=== PATIENT | male | born 1995 | race Caucasian/White ===

== ENCOUNTER 2019-03-20 11:24 | Inpatient (IN) | payer OTHER ==
[2019-03-20 14:16] VITALS: BMI 28.1
--- NOTE | 2019-03-20 15:36 | HP ---
COWS - Scale Resting Pulse: 1= ME 81-100 Sweatin= Chills/Flushing Restless Observation: 1= Difficult to Sit Still Pupil Size: 1= Pupils >than Normal Bone or Joint Aches: 1= Mild Discomfort Runny Nose/ Eye Tearin= Nasal Congestion GI Upset > 30mins: 1= Stomach Cramp Tremor Observation: 1= Tremor [place], Not Seen Yawning Observation: 1= 1-2x During Session Anxiety or Irritability: 1=Feels Anxious/Irritable Goose Flesh Skin: 3=Piloerection COWS Score: 13 CIWA Score Nausea/Vomitin-Mild Nausea/No Vomiting Muscle Tremors: 2 Anxiety: 6 Agitation: 1-Slight > Activity Paroxysmal Sweats: 1-Minimal Palms Moist Orientation: 0-Oriented Tacttile Disturbances: 0-None Auditory Disturbances: 0-None Visual Disturbances: 0-None Headache: 1-Very Mild CIWA-Ar Total Score: 12 - Admission Criteria OASAS Guidelines: Admission for Medically Managed Detox: Requires at least one of the followin. CIWA greater than 12 2. Seizures within the past 24 hours 3. Delirium tremens within the past 24 hours 4. Hallucinations within the past 24 hours 5. Acute intervention needed for co occurring medical disorder 6. Acute intervention needed for co occurring psychiatric disorder 7. Severe withdrawal that cannot be handled at a lower level of care (continued vomiting, continued diarrhea, abnormal vital signs) requiring intravenous medication and/or fluids 8. Patient presents the following: CIWA greater than 12 Admission Criteria Met: Admission criteria met Admission ROS [facility] Chief Complaint: here for heroin, xanax and alcohol detox. 23 yo anxiety and uses heroin and xanax to treat this. Says he would like to be abstinent. Says he likes suboxone as treatment for OUD but runs out and then uses heroin. Lives in [place] with his mother. heroin- 3 bundles/day, IV. no h/o OD alcohol- 1pint/day vodka, n oh/i seizures, DT's xanax- 8 mg /day, no h/o seizures. DUR- suboxone 02/06 7 strips, b/c insurance did not cover the 90 strips Utox-THC, met, fen, mop, oxy, MTD, JOANA- no Allergies/Adverse Reactions: Allergies Allergy/AdvReac Type Severity Reaction Status Date / Time No Known Allergies Allergy Verified 03/20/19 14:10 - Ebola screening Have you traveled outside of the country in the last 21 days: No (N) Have you had contact with anyone from an Ebola affected area: No Do you have a fever: No Patient History - Patient Medical History Other Medical History: anxiety - Patient Surgical History Past Surgical History: No - PPD History Documented Results: Negative w/o proof - Smoking Cessation Smoking history: Current every day smoker Have you smoked in the past 12 months: Yes Aproximately how many cigarettes per day: 1 Hx Chewing Tobacco Use: No Initiated information on smoking cessation: Yes 'Breaking Loose' booklet given: 03/20/19 - Substance & Tx. History Hx Alcohol Use: Yes Hx Substance Use: Yes Substance Use Type: Alcohol, Heroin, Marijuana, Opiates, Tranquilizers Hx Substance Use Treatment: Yes - Substances abused Alcohol Substance route: Oral Frequency: Daily Amount used: 1 PINT OF VODKA Age of first use: 15 Date of last use: 03/19/19 Heroin Substance route: Injection Frequency: Daily Amount used: 3 BUNDLES Age of first use: 19 Date of last use: 03/19/19 Alprazolam (Xanax) Substance route: Oral Frequency: Daily Amount used: 8 MG Age of first use: 17 Date of last use: 03/18/19 Family Disease History - Family Disease History Family History: Denies (pt denies) Admission Physical Exam S - Vital Signs Vital Signs: Vital Signs - 24 hr 03/20/19 14:07 Temperature 96.5 F L Pulse Rate 86 Respiratory 18 Rate Blood Pressure 111/73 - Physical General Appearance: Yes: Within Normal Limits, No Apparent Distress HEENTM: Yes: Within Normal Limits, EOMI, Hearing grossly Normal, Normocephalic Respiratory: Yes: Within Normal Limits, Chest Non-Tender, Lungs Clear Neck: Yes: Within Normal Limits Cardiology: Yes: Within Normal Limits, Regular Rhythm, Regular Rate Abdominal: Yes: Within Normal Limits, Normal Bowel Sounds Genitourinary: Yes: Within Normal Limits Back: Yes: Within Normal Limits, Normal Inspection Musculoskeletal: Yes: Within Normal Limits, full range of Motion Extremities: Yes: Within Normal Limits, Normal Capillary Refill Neurological: Yes: Within Normal Limits, home care aide II-XII NML intact, Fully Oriented, Alert Integumentary: Yes: Within Normal Limits, Track [place] Lymphatic: Yes: Within Normal Limits - Diagnostic (1) Opioid use disorder Current Visit: Yes Status: Acute (2) Severe benzodiazepine use disorder Current Visit: Yes Status: Acute (3) Alcohol use disorder Current Visit: Yes Status: Acute (4) Marijuana use, episodic Current Visit: Yes Status: Acute (5) Anxiety Current Visit: Yes Status: Acute Breathalyzer - Breathalyzer Breathalyzer: 0 Urine Drug Screen - Test Device Lot number: [id number] Expiration date: 12/05/20 - Control Is test valid?: Yes - Results Drug screen NEGATIVE: No Urine drug screen results: THC-Marijuana, MET-Methamphetamine, FEN-Fentanyl, MOP -Opiates, OXY-Oxycodone, MTD-Methadone Inpatient Rehab Admission - Rehab Decision to Admit Inpatient rehab admission?: No
[2019-03-20] MEDS ORDERED: IBUPROFEN 400 MG TABLET (FP) PO PRN (15:42)
[2019-03-20] MEDS ORDERED: cloNIDine HCL 0.1 MG TABLET PO PRN (15:42)
[2019-03-20] MEDS ORDERED: MAGNESIUM HYDROX 2400MG/30ML ORAL SUSPENSION 30 ML CUP PO PRN (15:42)
[2019-03-20] MEDS ORDERED: BISMUTH SUBSALICYLATE 524 MG/30 ML UD PO PRN (15:42)
[2019-03-20] MEDS ORDERED: ONDANSETRON *ODT* 4 MG TABLET SL PRN (15:42)
[2019-03-20] MEDS ORDERED: MAGNESIUM CITRATE 300 ML BOTTLE PO PRN (15:42)
[2019-03-20] MEDS ORDERED: ACETAMINOPHEN 325 MG TABLET (FP) PO PRN ×2 (15:42)
[2019-03-20] MEDS ORDERED: METHOCARBAMOL 500 MG TABLET PO PRN (15:42)
[2019-03-20] MEDS ORDERED: MAG HYDROX/AL HYDROX/SIMETH 30 ML UNIT-DOSE CUP PO PRN (15:42)
[2019-03-20] MEDS ORDERED: MENTHOL/PHENOL 1 EACH UD MM PRN (15:42)
[2019-03-20] MEDS ORDERED: METHADONE HCL 10 MG TABLET (FOR DETOX USE ONLY) PO ONE ×2 (16:00→23:00)
[2019-03-20] MEDS ORDERED: diazePAM 5 MG TABLET PO ONE (17:00)
[2019-03-20] MEDS: MELATONIN 5 MG TABLETS PO PRN (21:43)
[2019-03-20] MEDS: diazePAM 5 MG TABLET PO SCH (21:43)
[2019-03-20] MEDS: THIAMINE HCL 100 MG TABLET (FP) PO SCH (21:43)
[2019-03-21] MEDS: diazePAM 5 MG TABLET PO SCH ×3 (06:13→21:57)
--- NOTE | 2019-03-21 09:37 | CONSULT ---
[facility] Psychiatric Consult - Data Date of interview: 03/21/19 Admission source: [facility] Identifying data: Patient is a 23 year old single male, without children, unemployed, and is currently homeless. This is patient's first admission to detox at [facility]. Patient admitted to for alcohol, benzodiazepine, opiate, and marijuana dependence. Substance Abuse History: Smoking Cessation. Smoking history: Current every day smoker. Have you smoked in the past 12 months: Yes. Aproximately how many cigarettes per day: 1. Hx Chewing Tobacco Use: No. Initiated information on smoking cessation: Yes. 'Breaking Loose' booklet given: 03/20/19. - Substance & Tx. History. Hx Alcohol Use: Yes. Hx Substance Use: Yes. Substance Use Type : Alcohol, Heroin, Marijuana, Opiates, Tranquilizers. Hx Substance Use Treatment: Yes. - Substances abused. Alcohol. Substance route: Oral. Frequency: Daily. Amount used: 1 PINT OF VODKA. Age of first use: 15. Date of last use: 03/19/19. Heroin. Substance route: Injection. Frequency: Daily. Amount used: 3 BUNDLES. Age of first use: 19. Date of last use: . Alprazolam (Xanax). Substance route: Oral. Frequency: Daily. Amount used: 8 MG. Age of first use: 17. Date of last use: 03/18/19 Medical History: Unremarkable. Psychiatric History: Patient denies h/o psychiatric hospitalization and suicide attempt. States he first saw a psychiatrist 6 months for suboxone treatment. He denies current outpatient psychiatric care. At present he reports stable mood but is experiencing difficulty sleeping. He reports accepting remeron while in other detox facilities. Physical/Sexual Abuse/Trauma History: denies. Mental Status Exam - Mental Status Exam Alert and Oriented to: Time, Place, Person Cognitive Function: Good Patient Appearance: Well Groomed Mood: Withdrawn Affect: Mood Congruent Patient Behavior: Cooperative Speech Pattern: Appropriate Voice Loudness: Moderately Soft/Quiet Thought Process: Goal Oriented Thought Disorder: Not Present Hallucinations: Denies Suicidal Ideation: Denies Homicidal Ideation: Denies Insight/Judgement: Poor Sleep: Poorly Appetite: Fair Muscle strength/Tone: Normal Gait/Station: Normal Psychiatric Findings - Problem List ([place] 1, 2,3) (1) Substance-induced sleep disorder Current Visit: Yes Status: Acute (2) Alcohol use disorder Current Visit: Yes Status: Acute (3) Marijuana use, episodic Current Visit: Yes Status: Acute (4) Opioid use disorder Current Visit: Yes Status: Acute (5) Severe benzodiazepine use disorder Current Visit: Yes Status: Acute - Initial Treatment Plan Initial Treatment Plan: Psychoeducation provided. Detoxification in progress. Will order Remeron 7.5mg. Benefits and side effects discussed. Verbal consent given.
--- NOTE | 2019-03-21 09:47 | PN ---
[facility] CIWA - CIWA Score Nausea/Vomitin-Mild Nausea/No Vomiting Muscle Tremors: 3 Anxiety: 2 Agitation: 1-Slight > Activity Paroxysmal Sweats: 1-Minimal Palms Moist Orientation: 2-Disoriented Date<2 days Tacttile Disturbances: 0-None Auditory Disturbances: 0-None Visual Disturbances: 0-None Headache: 1-Very Mild CIWA-Ar Total Score: 11 BHS COWS - Scale Resting Pulse: 0= OR 80 or Below Sweatin= Chills/Flushing Restless Observation: 0= Sits Still Pupil Size: 0= Normal to Room Light Bone or Joint Aches: 1= Mild Discomfort Runny Nose/ Eye Tearin= Nasal Congestion GI Upset > 30mins: 2= Nausea/Diarrhea Tremor Observation of Outstretched Hands: 2= Slight Tremor Visible Yawning Observation: 1= 1-2x During Session Anxiety or Irritability: 2=Irritable/Anxious Goose Flesh Skin: 0=Smooth Skin COWS Score: 10 S Progress Note (SOAP) Subjective: doing better today with valium and methadone detox regimen tremor body aches otherwise feeling ok Objective: 03/21/19 09:49 Vital Signs Temperature 97.1 F L 03/21/19 09:38 Pulse Rate 65 03/21/19 09:38 Respiratory Rate 20 03/21/19 09:38 Blood Pressure 102/64 03/21/19 09:38 O2 Sat by Pulse Oximetry (%) lab pending Assessment: 03/21/19 09:50 alcohol benzo and opiate withdrawal sx Plan: continue detox
[2019-03-21] MEDS: PRENATAL VITAMINS W/ FOLIC ACID TABLET (FP) PO SCH (09:52)
[2019-03-21] MEDS: diazePAM 5 MG TABLET PO PRN ×2 (09:53→17:00)
[2019-03-21] MEDS ORDERED: METHADONE HCL 10 MG TABLET (FOR DETOX USE ONLY) PO ONE (10:00)
[2019-03-21 10:03] LABS: HEMATOCRIT 48.5 % (35.4-49); MCH 30.4 pg (25.7-33.7); MCHC 33.1 g/dl (32.0-35.9); MEAN CELL VOLUME 91.8 fl (80-96); MEAN PLT VOLUME 7.7 fl (7.5-11.1); PLATELET COUNT 235 K/MM3 (134-434); RBC 5.28 M/mm3 (4.00-5.60); RDW 13.1 % (11.9-15.9); WHITE BLOOD COUNT 6.4 K/mm3 (4.0-10.0)
[2019-03-21 13:41] LABS: URINE APPEARANCE Clear; URINE BILIRUBIN 1+ (NEGATIVE); URINE COLOR Yellow; URINE GLUCOSE (UA) Negative (NEGATIVE); URINE KETONE Trace (NEGATIVE); URINE LEUK ESTERASE Negative (NEGATIVE); URINE NITRITE Negative (NEGATIVE); URINE PROTEIN Negative (NEGATIVE)
[2019-03-21 14:15] LABS: CREATININE 0.8 mg/dL (0.55-1.3)
[2019-03-21 14:19] LABS: ALBUMIN 3.3 g/dl (3.4-5.0); BILIRUBIN,TOTAL 0.3 mg/dL (0.2-1); CALCIUM 8.7 mg/dL (8.5-10.1); POTASSIUM 4.1 mmol/L (3.5-5.1); TOT PROT 6.5 g/dl (6.4-8.2)
--- NOTE | 2019-03-21 19:34 | PN ---
[facility] Progress Note Note: Patient feeling very uncomfortable and having continued withdrawal symptoms. Alert and oriented. Increased facial moisture, Pupils = 5 mm, tremors Vital Signs 03/21/19 03/21/19 17:50 21:29 Temperature 98.0 F 97.4 F L Pulse Rate 72 68 Respiratory 18 20 Rate Blood Pressure 102/57 L 109/76 Laboratory Last Values WBC 6.4 K/mm3 (4.0-10.0) 03/21/19 07:00 RBC 5.28 M/mm3 (4.00-5.60) 03/21/19 07:00 Hgb 16.0 GM/dL (11.7-16.9) 03/21/19 07:00 Hct 48.5 % (35.4-49) 03/21/19 07:00 MCV 91.8 fl (80-96) 03/21/19 07:00 MCH 30.4 pg (25.7-33.7) 03/21/19 07:00 MCHC 33.1 g/dl (32.0-35.9) 03/21/19 07:00 RDW 13.1 % (11.9-15.9) 03/21/19 07:00 Plt Count 235 K/MM3 (134-434) 03/21/19 07:00 MPV 7.7 fl (7.5-11.1) 03/21/19 07:00 Sodium 139 mmol/L (136-145) 03/21/19 07:00 Potassium 4.1 mmol/L (3.5-5.1) 03/21/19 07:00 Chloride 105 mmol/L (98-107) 03/21/19 07:00 Carbon Dioxide 27 mmol/L (21-32) 03/21/19 07:00 Anion Gap 7 MMOL/L (8-16) L 03/21/19 07:00 BUN 54 mg/dL (7-18) H 03/21/19 07:00 Creatinine 0.8 mg/dL (0.55-1.3) 03/21/19 07:00 Est GFR (CKD-EPI)AfAm 144.91 03/21/19 07:00 Est GFR (CKD-EPI)NonAf 125.03 03/21/19 07:00 Random Glucose 79 mg/dL (74-106) 03/21/19 07:00 Calcium 8.7 mg/dL (8.5-10.1) 03/21/19 07:00 Total Bilirubin 0.3 mg/dL (0.2-1) 03/21/19 07:00 AST 30 U/L (15-37) 03/21/19 07:00 ALT 70 U/L (13-61) H 03/21/19 07:00 Alkaline Phosphatase 97 U/L (45-117) 03/21/19 07:00 Total Protein 6.5 g/dl (6.4-8.2) 03/21/19 07:00 Albumin 3.3 g/dl (3.4-5.0) L 03/21/19 07:00 Urine Color Yellow 03/20/19 10:00 Urine Appearance Clear 03/20/19 10:00 Urine pH 6.0 (5.0-8.0) 03/20/19 10:00 Ur Specific [place] 1.025 (1.010-1.035) 03/20/19 10:00 Urine Protein Negative (NEGATIVE) 03/20/19 10:00 Urine Glucose (UA) Negative (NEGATIVE) 03/20/19 10:00 Urine Ketones Trace (NEGATIVE) 03/20/19 10:00 Urine Blood Negative (NEGATIVE) 03/20/19 10:00 Urine Nitrite Negative (NEGATIVE) 03/20/19 10:00 Urine Bilirubin 1+ (NEGATIVE) H 03/20/19 10:00 Urine Urobilinogen 1.0 mg/dL (0.2-1.0) 03/20/19 10:00 Ur Leukocyte Esterase Negative (NEGATIVE) 03/20/19 10:00 RPR Titer Nonreactive (NONREACTIVE) 03/21/19 07:00 labs reviewed. Plan: Based on heroin use- will slow methadone taper. Encouraged increased fluids.
[2019-03-21] MEDS: THIAMINE HCL 100 MG TABLET (FP) PO SCH (21:57)
[2019-03-21] MEDS: MELATONIN 5 MG TABLETS PO PRN (21:57)
[2019-03-21] MEDS: MIRTAZAPINE 15 MG TABLET (FP) PO SCH (22:24)
[2019-03-22] MEDS ORDERED: METHADONE HCL 10 MG TABLET (FOR DETOX USE ONLY) ONE (09:22)
[2019-03-22] MEDS ORDERED: METHADONE HCL 5 MG TABLET (FOR DETOX USE ONLY) ONE (09:22)
[2019-03-22] MEDS ORDERED: METHADONE HCL 10 MG TABLET (FOR DETOX USE ONLY) PO ONE ×2 (10:00)
[2019-03-22] MEDS ORDERED: METHADONE (DETOX) 20 MG, METHADONE (DETOX) 5 MG PO ONE (10:00)
[2019-03-22] MEDS ORDERED: BENZOCAINE 20 % GEL TUBE MM PRN (10:07)
[2019-03-22] MEDS: PRENATAL VITAMINS W/ FOLIC ACID TABLET (FP) PO SCH (10:41)
[2019-03-22] MEDS: diazePAM 5 MG TABLET PO SCH ×2 (10:41→22:15)
[2019-03-22] MEDS: diazePAM 5 MG TABLET PO PRN ×2 (12:35→17:36)
--- NOTE | 2019-03-22 17:29 | PN ---
S CIWA - CIWA Score Nausea/Vomitin-No Nausea/No Vomiting Muscle Tremors: None Anxiety: 5 Agitation: 2 Paroxysmal Sweats: 3 Orientation: 0-Oriented Tacttile Disturbances: 2-Mild Itch/Numbness/Burn Auditory Disturbances: 0-None Visual Disturbances: 0-None Headache: 0-None Present CIWA-Ar Total Score: 12 S COWS - Scale Resting Pulse: 0= DC 80 or Below Sweatin=Flushed/Facial Moisture Restless Observation: 1= Difficult to Sit Still Pupil Size: 0= Normal to Room Light Bone or Joint Aches: 1= Mild Discomfort Runny Nose/ Eye Tearin= None GI Upset > 30mins: 0= None Tremor Observation of Outstretched Hands: 0= None Yawning Observation: 1= 1-2x During Session Anxiety or Irritability: 2=Irritable/Anxious Goose Flesh Skin: 3=Piloerection COWS Score: 10 S Progress Note (SOAP) Subjective: Sweating, Anxious, Restless, Interrupted Sleep. Objective: PATIENT A & O X 3, OBSERVED AMBULATING ON UNIT UNASSISTED. IN NO ACUTE DISTRESS. 03/22/19 17:30 Vital Signs Temperature 98.6 F 03/22/19 13:06 Pulse Rate 74 03/22/19 13:06 Respiratory Rate 18 03/22/19 13:06 Blood Pressure 125/76 03/22/19 13:06 O2 Sat by Pulse Oximetry (%) Laboratory Tests 03/20/19 03/21/19 03/21/19 10:00 07:00 07:00 WBC 6.4 RBC 5.28 Hgb 16.0 Hct 48.5 MCV 91.8 MCH 30.4 MCHC 33.1 RDW 13.1 Plt Count 235 MPV 7.7 Sodium 139 Potassium 4.1 Chloride 105 Carbon Dioxide 27 Anion Gap 7 L BUN 54 H Creatinine 0.8 Est GFR (CKD-EPI)AfAm 144.91 Est GFR (CKD-EPI)NonAf 125.03 Random Glucose 79 Calcium 8.7 Total Bilirubin 0.3 AST 30 ALT 70 H Alkaline Phosphatase 97 Total Protein 6.5 Albumin 3.3 L Urine Color Yellow Urine Appearance Clear Urine pH 6.0 Ur Specific [place] 1.025 Urine Protein Negative Urine Glucose (UA) Negative Urine Ketones Trace Urine Blood Negative Urine Nitrite Negative Urine Bilirubin 1+ H Urine Urobilinogen 1.0 Ur Leukocyte Esterase Negative RPR Titer 03/21/19 07:00 WBC RBC Hgb Hct MCV MCH MCHC RDW Plt Count MPV Sodium Potassium Chloride Carbon Dioxide Anion Gap BUN Creatinine Est GFR (CKD-EPI)AfAm Est GFR (CKD-EPI)NonAf Random Glucose Calcium Total Bilirubin AST ALT Alkaline Phosphatase Total Protein Albumin Urine Color Urine Appearance Urine pH Ur Specific [place] Urine Protein Urine Glucose (UA) Urine Ketones Urine Blood Urine Nitrite Urine Bilirubin Urine Urobilinogen Ur Leukocyte Esterase RPR Titer Nonreactive LABS NOTED. Assessment: 03/22/19 17:30 WITHDRAWAL SYMPTOMS. AZOTEMIA. 03/22/19 17:31 Plan: CONTINUE DETOX. PRN CLONIDINE PO FOR WITHDRAWAL SYMPTOMS. INCREASE DAILY PO FLUID INTAKE. REPEAT BUN LEVEL TOMORROW AM FOR ELEVATED ADMISSION LEVEL.
[2019-03-22] MEDS: THIAMINE HCL 100 MG TABLET (FP) PO SCH (22:15)
[2019-03-22] MEDS: MIRTAZAPINE 15 MG TABLET (FP) PO SCH (22:15)
[2019-03-22] MEDS: MELATONIN 5 MG TABLETS PO PRN (22:16)
[2019-03-23] MEDS ORDERED: diazePAM 5 MG TABLET PO SCH (06:00)
[2019-03-23] MEDS: diazePAM 5 MG TABLET PO PRN ×2 (08:57→13:58)
[2019-03-23] MEDS: PRENATAL VITAMINS W/ FOLIC ACID TABLET (FP) PO SCH (09:23)
[2019-03-23] MEDS ORDERED: METHADONE HCL 10 MG TABLET (FOR DETOX USE ONLY) PO ONE ×2 (10:00)
--- NOTE | 2019-03-23 12:36 | PN ---
[facility] CIWA - CIWA Score Nausea/Vomitin-No Nausea/No Vomiting Muscle Tremors: 4-Moderate,w/Arms Extend Anxiety: 5 Agitation: 5 Paroxysmal Sweats: 1-Minimal Palms Moist Orientation: 0-Oriented Tacttile Disturbances: 0-None Auditory Disturbances: 0-None Visual Disturbances: 0-None Headache: 0-None Present CIWA-Ar Total Score: 15 BHS COWS - Scale Resting Pulse: 1= [place] 81-100 Sweatin= Chills/Flushing Restless Observation: 3= Extraneous Movement Pupil Size: 0= Normal to Room Light Bone or Joint Aches: 4=Acute Joint/Muscle Pain Runny Nose/ Eye Tearin= None GI Upset > 30mins: 0= None Tremor Observation of Outstretched Hands: 1= Tremor [place], Not Seen Yawning Observation: 1= 1-2x During Session Anxiety or Irritability: 2=Irritable/Anxious Goose Flesh Skin: 0=Smooth Skin COWS Score: 13 S Progress Note (SOAP) Subjective: PT C/O HIGH ANXIETY, IRRITABILITY,INTERMITTENT SLEEP. Objective: 03/23/19 12:35 Vital Signs 03/23/19 03/23/19 06:06 09:31 Temperature 97.2 F L 96.8 F L Pulse Rate 82 74 Respiratory 18 18 Rate Blood Pressure 107/63 105/72 Laboratory Tests 03/20/19 03/21/19 03/21/19 10:00 07:00 07:00 WBC 6.4 RBC 5.28 Hgb 16.0 Hct 48.5 MCV 91.8 MCH 30.4 MCHC 33.1 RDW 13.1 Plt Count 235 MPV 7.7 Sodium 139 Potassium 4.1 Chloride 105 Carbon Dioxide 27 Anion Gap 7 L BUN 54 H Creatinine 0.8 Est GFR (CKD-EPI)AfAm 144.91 Est GFR (CKD-EPI)NonAf 125.03 Random Glucose 79 Calcium 8.7 Total Bilirubin 0.3 AST 30 ALT 70 H Alkaline Phosphatase 97 Total Protein 6.5 Albumin 3.3 L Urine Color Yellow Urine Appearance Clear Urine pH 6.0 Ur Specific [place] 1.025 Urine Protein Negative Urine Glucose (UA) Negative Urine Ketones Trace Urine Blood Negative Urine Nitrite Negative Urine Bilirubin 1+ H Urine Urobilinogen 1.0 Ur Leukocyte Esterase Negative RPR Titer 03/21/19 03/23/19 07:00 07:45 WBC RBC Hgb Hct MCV MCH MCHC RDW Plt Count MPV Sodium Potassium Chloride Carbon Dioxide Anion Gap BUN 10 Creatinine Est GFR (CKD-EPI)AfAm Est GFR (CKD-EPI)NonAf Random Glucose Calcium Total Bilirubin AST ALT Alkaline Phosphatase Total Protein Albumin Urine Color Urine Appearance Urine pH Ur Specific [place] Urine Protein Urine Glucose (UA) Urine Ketones Urine Blood Urine Nitrite Urine Bilirubin Urine Urobilinogen Ur Leukocyte Esterase RPR Titer Nonreactive Assessment: 03/23/19 12:35 WITHDRAWAL SX Plan: CONTINUE DETOX
[2019-03-23] MEDS: hydrOXYzine PAMOATE 25 MG CAPSULE (FP) PO PRN (17:42)
[2019-03-23] MEDS ORDERED: cloNIDine HCL 0.1 MG TABLET PO ONE (18:39)
[2019-03-23] MEDS: THIAMINE HCL 100 MG TABLET (FP) PO SCH (22:44)
[2019-03-23] MEDS: MIRTAZAPINE 15 MG TABLET (FP) PO SCH (22:44)
[2019-03-23] MEDS: MELATONIN 5 MG TABLETS PO PRN (22:45)
[2019-03-24] MEDS ORDERED: METHADONE HCL 5 MG TABLET (FOR DETOX USE ONLY) PO ONE (06:00)
[2019-03-24] MEDS ORDERED: METHADONE HCL 10 MG TABLET (FOR DETOX USE ONLY) PO ONE (10:00)
[2019-03-24] MEDS: PRENATAL VITAMINS W/ FOLIC ACID TABLET (FP) PO SCH (10:38)
[2019-03-24] MEDS: hydrOXYzine PAMOATE 25 MG CAPSULE (FP) PO PRN (12:58)
--- NOTE | 2019-03-24 14:28 | PN ---
S CIWA - CIWA Score Nausea/Vomitin-Mild Nausea/No Vomiting Muscle Tremors: 2 Anxiety: 2 Agitation: 2 Paroxysmal Sweats: 1-Minimal Palms Moist Orientation: 0-Oriented Tacttile Disturbances: 0-None Auditory Disturbances: 0-None Visual Disturbances: 0-None Headache: 1-Very Mild CIWA-Ar Total Score: 9 BHS COWS - Scale Resting Pulse: 0= DC 80 or Below Sweatin= Chills/Flushing Restless Observation: 0= Sits Still Pupil Size: 0= Normal to Room Light Bone or Joint Aches: 1= Mild Discomfort Runny Nose/ Eye Tearin= Nasal Congestion GI Upset > 30mins: 1= Stomach Cramp Tremor Observation of Outstretched Hands: 2= Slight Tremor Visible Yawning Observation: 1= 1-2x During Session Anxiety or Irritability: 1=Feels Anxious/Irritable Goose Flesh Skin: 0=Smooth Skin COWS Score: 8 BHS Progress Note (SOAP) Subjective: feeling better today aftercare VIP reporting that long history of anxiety taking xanax discuss risk of addiction of xanax strong recommend the patient follow up with [facility] mental health specialist Objective: 03/24/19 14:27 Vital Signs Temperature 97.5 F L 03/24/19 13:32 Pulse Rate 76 03/24/19 13:32 Respiratory Rate 18 03/24/19 13:32 Blood Pressure 102/65 03/24/19 13:32 O2 Sat by Pulse Oximetry (%) Laboratory Last Values WBC 6.4 K/mm3 (4.0-10.0) 03/21/19 07:00 RBC 5.28 M/mm3 (4.00-5.60) 03/21/19 07:00 Hgb 16.0 GM/dL (11.7-16.9) 03/21/19 07:00 Hct 48.5 % (35.4-49) 03/21/19 07:00 MCV 91.8 fl (80-96) 03/21/19 07:00 MCH 30.4 pg (25.7-33.7) 03/21/19 07:00 MCHC 33.1 g/dl (32.0-35.9) 03/21/19 07:00 RDW 13.1 % (11.9-15.9) 03/21/19 07:00 Plt Count 235 K/MM3 (134-434) 03/21/19 07:00 MPV 7.7 fl (7.5-11.1) 03/21/19 07:00 Sodium 139 mmol/L (136-145) 03/21/19 07:00 Potassium 4.1 mmol/L (3.5-5.1) 03/21/19 07:00 Chloride 105 mmol/L (98-107) 03/21/19 07:00 Carbon Dioxide 27 mmol/L (21-32) 03/21/19 07:00 Anion Gap 7 MMOL/L (8-16) L 03/21/19 07:00 BUN 10 mg/dL (7-18) 03/23/19 07:45 Creatinine 0.8 mg/dL (0.55-1.3) 03/21/19 07:00 Est GFR (CKD-EPI)AfAm 144.91 03/21/19 07:00 Est GFR (CKD-EPI)NonAf 125.03 03/21/19 07:00 Random Glucose 79 mg/dL (74-106) 03/21/19 07:00 Calcium 8.7 mg/dL (8.5-10.1) 03/21/19 07:00 Total Bilirubin 0.3 mg/dL (0.2-1) 03/21/19 07:00 AST 30 U/L (15-37) 03/21/19 07:00 ALT 70 U/L (13-61) H 03/21/19 07:00 Alkaline Phosphatase 97 U/L (45-117) 03/21/19 07:00 Total Protein 6.5 g/dl (6.4-8.2) 03/21/19 07:00 Albumin 3.3 g/dl (3.4-5.0) L 03/21/19 07:00 Urine Color Yellow 03/20/19 10:00 Urine Appearance Clear 03/20/19 10:00 Urine pH 6.0 (5.0-8.0) 03/20/19 10:00 Ur Specific [place] 1.025 (1.010-1.035) 03/20/19 10:00 Urine Protein Negative (NEGATIVE) 03/20/19 10:00 Urine Glucose (UA) Negative (NEGATIVE) 03/20/19 10:00 Urine Ketones Trace (NEGATIVE) 03/20/19 10:00 Urine Blood Negative (NEGATIVE) 03/20/19 10:00 Urine Nitrite Negative (NEGATIVE) 03/20/19 10:00 Urine Bilirubin 1+ (NEGATIVE) H 03/20/19 10:00 Urine Urobilinogen 1.0 mg/dL (0.2-1.0) 03/20/19 10:00 Ur Leukocyte Esterase Negative (NEGATIVE) 03/20/19 10:00 RPR Titer Nonreactive (NONREACTIVE) 03/21/19 07:00 lab noted Assessment: 03/24/19 14:27 alcohol benzo opiate withdrawal sx Plan: continue detox
[2019-03-24] MEDS: THIAMINE HCL 100 MG TABLET (FP) PO SCH (23:30)
[2019-03-24] MEDS: MIRTAZAPINE 15 MG TABLET (FP) PO SCH (23:30)
[2019-03-25] MEDS ORDERED: METHADONE HCL 5 MG TABLET (FOR DETOX USE ONLY) PO ONE (06:00)
[2019-03-25 09:11] VITALS: BP 115/74; PULSE 96; TEMP 97.8
[2019-03-25] MEDS: PRENATAL VITAMINS W/ FOLIC ACID TABLET (FP) PO SCH (10:38)
--- NOTE | 2019-03-25 15:49 | DS ---
[facility] Detox Discharge Summary Admission Date: 03/20/19 Discharge Date: 03/25/19 - History Present History: Alcohol Dependence, Opioid Dependence, Sedative Dependence Additional Comments: 23 years old male admitted on 03/20/19 for alcohol benzo opiate withdrawawl stabilization had phone conversation with "girl friend" on 6N throughout the hospitalization both discharged today patient became angry that he wants to stay four more days in detox and demands girlfriend stay four more days on 6N team approach met with the patient that next level of addiction care will be rehab for sobriety patient is alert no acute distress denies suicidal ideation encourage the patient seeks community self help support group discuss medication assisted treatment maintenance program Pertinent Past History: bring in medication list and lab report to follow up appointment - Physical Exam Results Vital Signs: Vital Signs Temperature 97.8 F 03/25/19 09:10 Pulse Rate 96 H 03/25/19 09:10 Respiratory Rate 20 03/25/19 09:10 Blood Pressure 115/74 03/25/19 09:10 O2 Sat by Pulse Oximetry (%) Pertinent Admission Physical Exam Findings: alcohol benzo opiate withdrawal sx Laboratory Last Values WBC 6.4 K/mm3 (4.0-10.0) 03/21/19 07:00 RBC 5.28 M/mm3 (4.00-5.60) 03/21/19 07:00 Hgb 16.0 GM/dL (11.7-16.9) 03/21/19 07:00 Hct 48.5 % (35.4-49) 03/21/19 07:00 MCV 91.8 fl (80-96) 03/21/19 07:00 MCH 30.4 pg (25.7-33.7) 03/21/19 07:00 MCHC 33.1 g/dl (32.0-35.9) 03/21/19 07:00 RDW 13.1 % (11.9-15.9) 03/21/19 07:00 Plt Count 235 K/MM3 (134-434) 03/21/19 07:00 MPV 7.7 fl (7.5-11.1) 03/21/19 07:00 Sodium 139 mmol/L (136-145) 03/21/19 07:00 Potassium 4.1 mmol/L (3.5-5.1) 03/21/19 07:00 Chloride 105 mmol/L (98-107) 03/21/19 07:00 Carbon Dioxide 27 mmol/L (21-32) 03/21/19 07:00 Anion Gap 7 MMOL/L (8-16) L 03/21/19 07:00 BUN 10 mg/dL (7-18) 03/23/19 07:45 Creatinine 0.8 mg/dL (0.55-1.3) 03/21/19 07:00 Est GFR (CKD-EPI)AfAm 144.91 03/21/19 07:00 Est GFR (CKD-EPI)NonAf 125.03 03/21/19 07:00 Random Glucose 79 mg/dL (74-106) 03/21/19 07:00 Calcium 8.7 mg/dL (8.5-10.1) 03/21/19 07:00 Total Bilirubin 0.3 mg/dL (0.2-1) 03/21/19 07:00 AST 30 U/L (15-37) 03/21/19 07:00 ALT 70 U/L (13-61) H 03/21/19 07:00 Alkaline Phosphatase 97 U/L (45-117) 03/21/19 07:00 Total Protein 6.5 g/dl (6.4-8.2) 03/21/19 07:00 Albumin 3.3 g/dl (3.4-5.0) L 03/21/19 07:00 Urine Color Yellow 03/20/19 10:00 Urine Appearance Clear 03/20/19 10:00 Urine pH 6.0 (5.0-8.0) 03/20/19 10:00 Ur Specific [place] 1.025 (1.010-1.035) 03/20/19 10:00 Urine Protein Negative (NEGATIVE) 03/20/19 10:00 Urine Glucose (UA) Negative (NEGATIVE) 03/20/19 10:00 Urine Ketones Trace (NEGATIVE) 03/20/19 10:00 Urine Blood Negative (NEGATIVE) 03/20/19 10:00 Urine Nitrite Negative (NEGATIVE) 03/20/19 10:00 Urine Bilirubin 1+ (NEGATIVE) H 03/20/19 10:00 Urine Urobilinogen 1.0 mg/dL (0.2-1.0) 03/20/19 10:00 Ur Leukocyte Esterase Negative (NEGATIVE) 03/20/19 10:00 RPR Titer Nonreactive (NONREACTIVE) 03/21/19 07:00 lab noted - Treatment Hospital Course: Detox Protocol Followed, Detoxed Safely, Responded well, Discharged Condition Good, Rehab Referral Accepted Patient has Accepted a Rehab Referral to: [facility] medication assisted treatment program - Medication Discharge Medications: Ambulatory Orders Naloxone HCl [Narcan] 4 mg NS ASDIR PRN #1 spray 03/24/19 - Diagnosis (1) Alcohol use disorder Status: Acute (2) Opioid use disorder Status: Acute (3) Severe benzodiazepine use disorder Status: Acute - AMA Did Patient Leave Against Medical Advice: No
== END 2019-03-25 11:22 | disposition home or self-care (01) | DRG 773 ==
LOC: YASAS 11:24 → Y3N 16:22
PROVIDERS: ADMIT Surgery; ATTEND Surgery
PROC: HZ2ZZZZ Detoxification Services for Substance Abuse Treatment (ICD-10-PCS; principal; 2019-03-20)
DX: F10.230 Alcohol dependence with withdrawal, uncomplicated (principal); F11.23 Opioid dependence with withdrawal; F13.230 Sedative, hypnotic or anxiolytic dependence with withdrawal, uncomplicated; F12.90 Cannabis use, unspecified, uncomplicated; F17.210 Nicotine dependence, cigarettes, uncomplicated; F19.282 Other psychoactive substance dependence with psychoactive substance-induced sleep disorder; R79.89 Other specified abnormal findings of blood chemistry
CPT/HCPCS: 36415; 80053; 81003; 84520; 85027; 86593; J0735

== ENCOUNTER 2021-05-26 16:15 | Inpatient (IN) | payer OTHER ==
[2021-05-26 17:57] VITALS: BMI 29.0
[2021-05-26] MEDS ORDERED: NICOTINE POLACRILEX 2 MG GUM BUC PRN (19:34)
[2021-05-26] MEDS ORDERED: METHOCARBAMOL 500 MG TABLET PO PRN (19:34)
[2021-05-26] MEDS ORDERED: BISMUTH SUBSALICYLATE 524 MG/30 ML PO PRN (19:34)
[2021-05-26] MEDS ORDERED: ACETAMINOPHEN 325 MG TABLET (FP) PO PRN ×2 (19:34)
[2021-05-26] MEDS ORDERED: methaDONE HCL 10 MG TABLET (FOR DETOX USE ONLY) PO ONE (19:34)
[2021-05-26] MEDS ORDERED: MAGNESIUM HYDROX 2400MG/30ML ORAL SUSPENSION 30 ML CUP PO PRN (19:34)
[2021-05-26] MEDS ORDERED: MENTHOL/PHENOL 1 EACH UD MM PRN (19:34)
[2021-05-26] MEDS ORDERED: MAG HYDROX/AL HYDROX/SIMETH 30 ML UNIT-DOSE CUP PO PRN (19:34)
[2021-05-26] MEDS ORDERED: MAGNESIUM CITRATE 300 ML BOTTLE PO PRN (19:34)
[2021-05-26] MEDS ORDERED: ONDANSETRON *ODT* 4 MG TABLET SL PRN (19:34)
[2021-05-26] MEDS ORDERED: NALOXONE (NARCAN) HCL 4 MG/0.1 ML SPRAY NS ONE (19:41)
[2021-05-26] MEDS ORDERED: LORazepam 1 MG TABLET PO PRN (19:56)
[2021-05-26] MEDS: MELATONIN 5 MG TABLETS PO SCH (21:55)
[2021-05-26] MEDS: THIAMINE HCL 100 MG TABLET (FP) PO SCH (21:56)
[2021-05-26] MEDS: LORazepam 2 MG TABLET PO SCH (21:59)
[2021-05-26] MEDS ORDERED: hydrOXYzine PAMOATE 25 MG CAPSULE (FP) PO SCH (22:00)
[2021-05-27] MEDS ORDERED: LORazepam 2 MG TABLET ONE (06:28)
[2021-05-27] MEDS: LORazepam 2 MG TABLET PO SCH ×4 (06:30→22:05)
[2021-05-27 10:43] LABS: HEMATOCRIT 43.4 % (35.4-49); HEMOGLOBIN 14.5 GM/dL (11.7-16.9); MCH 30.8 pg (25.7-33.7); MCHC 33.4 g/dl (32.0-35.9); MEAN CELL VOLUME 92.1 fl (80-96); MEAN PLT VOLUME 7.8 fl (7.5-11.1); PLATELET COUNT 184 10^3/uL (134-434); RBC 4.71 M/mm3 (4.00-5.60); RDW 14.7 % (11.9-15.9); WHITE BLOOD COUNT 4.9 K/mm3 (4.0-10.0)
[2021-05-27] MEDS ORDERED: methaDONE HCL 10 MG TABLET (FOR DETOX USE ONLY) ONE (10:59)
[2021-05-27] MEDS: NICOTINE 14 MG/24 HOURS TOPICAL PATCH TD SCH (11:03)
[2021-05-27] MEDS: PRENATAL VITAMINS W/ FOLIC ACID TABLET (FP) PO SCH (11:03)
[2021-05-27 11:24] LABS: BLOOD UREA NITROGEN 9.8 mg/dL (7-18); CALCIUM 8.6 mg/dL (8.5-10.1)
[2021-05-27 11:25] LABS: CREATININE 0.7 mg/dL (0.55-1.3)
[2021-05-27 11:27] LABS: TOT PROT 6.3 g/dl (6.4-8.2)
[2021-05-27 11:29] LABS: BILIRUBIN,TOTAL 0.8 mg/dL (0.2-1)
[2021-05-27] MEDS: hydrOXYzine PAMOATE 25 MG CAPSULE (FP) PO PRN (19:19)
[2021-05-27] MEDS: THIAMINE HCL 100 MG TABLET (FP) PO SCH (22:05)
[2021-05-27] MEDS: MELATONIN 5 MG TABLETS PO SCH (22:05)
[2021-05-27] MEDS: MIRTAZAPINE 15 MG TABLET (FP) PO SCH (22:05)
[2021-05-28] MEDS: LORazepam 1 MG TABLET PO SCH ×4 (05:45→22:36)
[2021-05-28] MEDS ORDERED: methaDONE HCL 10 MG TABLET (FOR DETOX USE ONLY) PO ONE (10:00)
[2021-05-28] MEDS: PRENATAL VITAMINS W/ FOLIC ACID TABLET (FP) PO SCH (10:06)
[2021-05-28] MEDS: NICOTINE 14 MG/24 HOURS TOPICAL PATCH TD SCH (10:07)
[2021-05-28] MEDS: hydrOXYzine PAMOATE 25 MG CAPSULE (FP) PO PRN ×2 (12:36→17:36)
[2021-05-28] MEDS: cloNIDine HCL 0.1 MG TABLET PO PRN ×2 (17:36→22:36)
[2021-05-28] MEDS: THIAMINE HCL 100 MG TABLET (FP) PO SCH (22:36)
[2021-05-28] MEDS: MIRTAZAPINE 15 MG TABLET (FP) PO SCH (22:37)
[2021-05-28] MEDS: MELATONIN 5 MG TABLETS PO SCH (22:37)
[2021-05-29] MEDS ORDERED: LORazepam 0.5 MG TABLET PO PRN
[2021-05-29] MEDS: LORazepam 0.5 MG TABLET PO SCH ×4 (05:41→22:05)
[2021-05-29] MEDS ORDERED: methaDONE HCL 10 MG TABLET (FOR DETOX USE ONLY) ONE (08:59)
[2021-05-29] MEDS: PRENATAL VITAMINS W/ FOLIC ACID TABLET (FP) PO SCH (10:09)
[2021-05-29] MEDS: NICOTINE 14 MG/24 HOURS TOPICAL PATCH TD SCH (10:09)
[2021-05-29] MEDS: hydrOXYzine PAMOATE 25 MG CAPSULE (FP) PO PRN (13:44)
[2021-05-29] MEDS: MIRTAZAPINE 15 MG TABLET (FP) PO SCH (22:05)
[2021-05-29] MEDS: THIAMINE HCL 100 MG TABLET (FP) PO SCH (22:05)
[2021-05-29] MEDS: MELATONIN 5 MG TABLETS PO SCH (22:05)
[2021-05-30] MEDS ORDERED: LORazepam 0.5 MG TABLET PO ONE (05:00)
[2021-05-30] MEDS: IBUPROFEN 400 MG TABLET (FP) PO PRN ×2 (05:49→22:11)
[2021-05-30] MEDS ORDERED: methaDONE HCL 10 MG TABLET (FOR DETOX USE ONLY) PO ONE (10:00)
[2021-05-30] MEDS: PRENATAL VITAMINS W/ FOLIC ACID TABLET (FP) PO SCH (10:18)
[2021-05-30] MEDS: hydrOXYzine PAMOATE 25 MG CAPSULE (FP) PO PRN (10:19)
[2021-05-30] MEDS: NICOTINE 14 MG/24 HOURS TOPICAL PATCH TD SCH (10:20)
[2021-05-30] MEDS ORDERED: cloNIDine HCL 0.1 MG TABLET PO ONE (12:32)
[2021-05-30 15:13] LABS: SGOT/AST 108 U/L (15-37); SGPT/ALT 220 U/L (13-61)
[2021-05-30] MEDS: MIRTAZAPINE 15 MG TABLET (FP) PO SCH (22:09)
[2021-05-30] MEDS: MELATONIN 5 MG TABLETS PO SCH (22:09)
[2021-05-30] MEDS: CHLORHEXIDINE GLUCONATE 0.12% 15ML CUP MM SCH (22:10)
[2021-05-30] MEDS: THIAMINE HCL 100 MG TABLET (FP) PO SCH (22:10)
[2021-05-31 09:03] VITALS: BP 121/75; PULSE 75; TEMP 98.4
[2021-05-31] MEDS: NICOTINE 14 MG/24 HOURS TOPICAL PATCH TD SCH (09:11)
[2021-05-31] MEDS: CHLORHEXIDINE GLUCONATE 0.12% 15ML CUP MM SCH (09:11)
[2021-05-31] MEDS: PRENATAL VITAMINS W/ FOLIC ACID TABLET (FP) PO SCH (09:11)
== END 2021-05-31 09:40 | disposition home or self-care (01) | DRG 773 ==
LOC: YASAS 16:15 → Y3N 20:11 → UNDOADMIN 20:11 → Y6N 05-27 09:00
PROVIDERS: ADMIT Allergy & Immunology; ATTEND Allergy & Immunology
PROC: HZ2ZZZZ Detoxification Services for Substance Abuse Treatment (ICD-10-PCS; principal; 2021-05-27)
DX: F11.23 Opioid dependence with withdrawal (principal); F10.230 Alcohol dependence with withdrawal, uncomplicated; F14.20 Cocaine dependence, uncomplicated; F13.20 Sedative, hypnotic or anxiolytic dependence, uncomplicated; F12.10 Cannabis abuse, uncomplicated; F17.210 Nicotine dependence, cigarettes, uncomplicated; F19.282 Other psychoactive substance dependence with psychoactive substance-induced sleep disorder; F19.280 Other psychoactive substance dependence with psychoactive substance-induced anxiety disorder; F39 Unspecified mood [affective] disorder; F41.8 Other specified anxiety disorders; B18.2 Chronic viral hepatitis C; R74.01 Elevation of levels of liver transaminase levels; Z91.013 Allergy to seafood; Z56.0 Unemployment, unspecified; Z59.0 Homelessness
CPT/HCPCS: 36415; 80053; 84450; 84460; 85027; 86780; 93005; 93010; C9803; J0735; Q0162; U0003; U0005